=== PATIENT | female | born 1975 | race Caucasian/White ===

== ENCOUNTER → 2021-12-07 | Outpatient (CLI) | payer OTHER ==
--- NOTE | 2021-12-07 17:00 | DIREP ---
PROCEDURE:XRAY SPINE LUMBAR 2-3 VWS COMPARISON:None. 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 FINDINGS: ALIGNMENT:Grade L2 on L3 and L3 on L4.. VERTEBRAE:Lower lumbar facet disease. No fracture. DISK SPACES:Mild narrowing L5-S1. OTHER:Normal. CONCLUSION:Degenerative changes without fracture Dictated by: Eder Will DO on 12/07/2021 at 04:57 PM
--- NOTE | 2021-12-07 17:01 | DIREP ---
PROCEDURE:XRAY KNEE 3 VIEWS-LT COMPARISON:None. INDICATIONS:M25.552 PAIN IN LT HIP, M25.562 PAIN IN LT KNEE FINDINGS: BONES:Normal. JOINTS:Normal. SOFT TISSUES:Normal. OTHER:No additional findings. CONCLUSION:Normal examination. Dictated by: Eder Will DO on 12/07/2021 at 04:59 PM
--- NOTE | 2021-12-07 17:04 | DIREP ---
PROCEDURE:XRAY HIP MIN 2VW-LT COMPARISON:[facility], CR, XRAY HIP MIN 2VW-LT, 11/20/2020, 10:16 AM. INDICATIONS:M25.552 PAIN IN LT HIP, M25.562 PAIN IN LT KNEE FINDINGS: BONES:Normal. JOINTS:Normal. SOFT TISSUES:Normal. OTHER:No additional findings. CONCLUSION:Normal examination. Dictated by: Eder Will DO on 12/07/2021 at 05:00 PM
== END | disposition home or self-care (01) ==
LOC: RAD 12:02
PROVIDERS: ATTEND Internal Medicine
DX: M47.27 Other spondylosis with radiculopathy, lumbosacral region (principal); M48.07 Spinal stenosis, lumbosacral region; M25.552 Pain in left hip; M25.562 Pain in left knee
CPT/HCPCS: 72100; 73502; 73562-LT

== ENCOUNTER 2024-09-07 21:57 | Emergency (ER) | payer OTHER ==
[2024-09-07 22:19] VITALS: BP 139/88; PULSE 111; RESP 20; TEMP 98.4; O2SAT 95
[2024-09-07 22:34] VITALS: BP 139/88; PULSE 111; RESP 20; TEMP 98.4; O2SAT 95
[2024-09-07] MEDS ORDERED: TORADOL ONE (22:34)
[2024-09-07] MEDS: TORADOL IM STA (22:44)
[2024-09-07 22:54] VITALS: BP 134/83; PULSE 96; RESP 20; TEMP 98.4; O2SAT 95
== END 2024-09-07 22:57 | disposition home or self-care (01) ==
LOC: ER 21:57
DX: S69.92XA Unspecified injury of left wrist, hand and finger(s), initial encounter (principal); E78.00 Pure hypercholesterolemia, unspecified; Z88.0 Allergy status to penicillin; Z90.49 Acquired absence of other specified parts of digestive tract; V89.2XXA Person injured in unspecified motor-vehicle accident, traffic, initial encounter; Y93.89 Activity, other specified; Y92.488 Other paved roadways as the place of occurrence of the external cause; Y99.8 Other external cause status
CPT/HCPCS: 99283; 96372; 73110; J1885